=== PATIENT | male | born 1990 | race Caucasian/White ===

== ENCOUNTER 2018-04-04 21:08 | Observation (INO) ==
[2018-04-05] MEDS ORDERED: Naloxone 0.4 MG/ML INJ IVP PRN (00:53)
--- NOTE | 2018-04-05 00:56 | Internal Med History&Physical ---
Date of Encounter: 04/05/18 Time of Encounter: 08:00 Internal Medicine - H&P: HPI Chief complaint: right flank pain History of present illness: Mr. Hall is a 27 year old male with no significant past medical history who presented to outside hospital ER with right sided flank pain that started yesterday and is progressively worsening. The patient reported associated nausea and vomiting. The patient was evaluated by the ER at [place] and has laboratory data revealed no significant aches abnormalities except for microscopic hematuria which raised the suspicion of possible renal stone urology was consulted and the patient was transferred to [facility] for further evaluation and management. Past Med Surg Social Fam HX - Past Medical History Medical history: no medical history Psychiatric history: no psych history - Social History Smoking Status: Never smoker Smokeless Tobacco Status: No Alcohol use: none Drug use: none Internal Medicine - H&P: Meds 3 Allergy/AdvReac Type Severity Reaction Status Date / Time Penicillins Allergy See Verified 04/02/18 22:15 Comments All Systems PM: A 10-system review of systems was performed and is negative for pertinent findings except as documented above in the HPI. - Constitutional Constitutional: no chills, no fever(s), no night sweats - Cardiovascular Cardiovascular ROS IM: no chest pain, no diaphoresis, no dyspnea, no lightheadedness, no palpitations, no syncope - Respiratory Respiratory: no cough, no dyspnea, no wheezing, no excessive phlegm production - Gastrointestinal Gastrointestinal: no abdominal pain, no diarrhea, no hematemesis, no hematochezia, no melena, no nausea, no vomiting - Genitourinary Genitourinary ROS male: flank pain - Neurological Neurological ROS: no confusion, no convulsions, no focal weakness, no numbness, no tingling, no tremor(s) - Constitutional Vitals: Temp Pulse Resp BP Pulse Ox 98.9 F 68 14 165/95 99 04/04/18 22:45 04/04/18 22:45 04/04/18 22:45 04/04/18 22:45 04/04/18 22:45 General appearance: Present: A&O X 3 - Head Head exam: Present: atraumatic, normocephalic - Neck Neck exam general surgery: Present: supple, trachea midline. Absent: lymphadenopathy - Respiratory Respiratory exam: Present: CTAB. Absent: accessory muscle use, rales, rhonchi, wheezes - Cardiovascular Cardiovascular exam: Present: RRR, +S1, +S2. Absent: diastolic murmur, gallop, rubs, systolic murmur - GI/Abdominal GI/Abdominal exam: Present: normal bowel sounds, soft, no peritoneal signs. Absent: distended, tenderness - Neurological Exam Neurological exam: Present: CN II-XII intact, oriented X3, no focal deficits. Absent: pronater drift, facial droop, speech deficit Internal Med - H&P Results - Labs CBC & Chem 7: 04/05/18 05:41 04/05/18 05:41 - Assessment and plan (1) Right flank pain Current Visit: Yes Status: Acute Assessment and plan: Most likely secondary to nephrolithiasis, will start patient on IV fluid pain medication and antiemetic and we will consult urology in a.m. (2) Microscopic hematuria Current Visit: Yes Status: Acute Assessment and plan: Most likely secondary to nephrolithiasis we would repeat urinalysis (3) DVT prophylaxis Current Visit: Yes Status: Acute Assessment and plan: We will place SCDs - Time Spent With Patient Total time spent is greater than 50% in coordination of care (as documented) at patient's floor/unit and/or counseling patient:
[2018-04-05] MEDS: *HR* HYDROcodone/Acet 5/325 mg TABLET PO PRN ×3 (01:29→21:35)
[2018-04-05] MEDS: 0.9 % Sodium Chloride 1,000 ML IVC SCH ×2 (01:42→10:20)
[2018-04-05] MEDS ORDERED: Ondansetron 4 MG/2 ML VIAL IVP PRN (04:11)
[2018-04-05 06:30] LABS: Basophils % 0.3 %; Eosinophils % 0.2 %; Hematocrit 43.8 % (37.5-50.1); Hemoglobin 15.2 g/dL (12.9-16.9); Immature Granulocytes % 0.4 % (0-4); Lymphocytes # 1.7 K/mcL (0.6-4.6); Lymphocytes % 11.3 %; Mean Corpuscular HGB Conc 34.7 g/dL (31.6-35.5); Mean Corpuscular Hemoglobin 28.4 pg (28.0-33.3); Mean Corpuscular Volume 81.7 fL (83.0-100.0); Mean Platelet Volume 10.6 fL (9.4-12.4); Monocytes # 1.1 K/mcL (0.0-1.3); Monocytes % 7.4 %; Neutrophils # 11.8 K/mcL (1.6-8.9); Platelet Count 214 K/mcL (140-400); Red Blood Count 5.36 M/mcL (4.19-5.50); Red Cell Distribution Width 12.3 % (11.5-14.5); Segmented Neutrophils % 80.4 %
[2018-04-05 06:33] LABS: INR 1.1; Prothrombin Time 12.3 Seconds (9.4-12.1)
[2018-04-05 06:36] LABS: Activated Partial Thrombo Time 33.2 Seconds (26.0-36.0)
[2018-04-05] MEDS: Acetaminophen 325 MG TABLET PO PRN ×2 (06:45→17:55)
[2018-04-05 06:46] LABS: Alanine Aminotransferase 20 Units/L (7-52); Albumin 3.9 g/dL (3.5-5.7); Albumin/Globulin Ratio 1.8 (1.1-2.2); Alkaline Phosphatase 76 Units/L (34-104); Aspartate Amino Transferase 16 Units/L (13-39); BUN/Creatinine Ratio 10 (6-26); Bilirubin,Total 0.8 mg/dL (0.3-1.0); Blood Urea Nitrogen 12 mg/dL (6-20); Calcium 8.8 mg/dL (8.6-10.3); Carbon Dioxide 20 mEq/L (23-29); Chloride 110 mEq/L (98-107); Chol/HDL Ratio 6.7 (0-4.9); Cholesterol 201 mg/dL (< 200); Globulin 2.2 g/dL (2.4-3.5); Glucose 105 mg/dL (70-105); HDL Cholesterol 30 mg/dL (40-59); LDL Cholesterol,Calculated 152 mg/dL (0-99); Magnesium 1.8 mg/dL (1.6-2.6); Osmolality,Calculated 286 (280-300); Phosphorous 3.6 mg/dL (2.7-4.5); Sodium 138 mEq/L (136-145); Total Protein 6.1 g/dL (6.4-8.9); Triglycerides 96 mg/dL (< 150); eGFR For African Americans > 60 (> 60); eGFR For Non-African Americans > 60 (> 60)
--- NOTE | 2018-04-05 08:53 | Urology - Consult Note ---
Date of Encounter: 04/05/18 Time of Encounter: 08:51 - Assessment and Plan (1) Right ureteral stone Current Visit: Yes Status: Acute Assessment and plan: Patient has a ureteral stone on the right side. We will have the patient continue with fluids and by mouth intake today to see if he can pass the stone. If patient unable to pass a stone we will consider right ureteroscopic stone extraction tomorrow. Pain control as needed. (2) Hydronephrosis, right Current Visit: Yes Status: Acute Assessment and plan: This is secondary to an obstructing ureteral stone. Will resolve with either spontaneous passage of the stone or stone extraction. (3) Leukocytosis Current Visit: Yes Status: Acute Assessment and plan: Likely secondary to inflammation caused from hydronephrosis and right ureteral stone. Patient without any fevers. We will continue to observe closely. Qualifiers: Leukocytosis type: unspecified Qualified Code(s): D72.829 - Elevated white blood cell count, unspecified Urology CN:HPI Consult date: 04/05/18 Reason for consult Urology: Other (right ureteral stone) Requesting physician: Di Ramos History of present illness: Rajiv is a 27-year-old male with a history of recurrent kidney stones. Patient states that he presented to our emergency room 3 days ago the left before being seen secondary to long wait time. Patient then presented to outside hospital emergency department last night secondary to severe 10 out of 10 right-sided flank pain. Patient states pain radiated to her right groin. He denied any nausea or vomiting. No fevers. He was found to have a 6 mm mid distal right ureteral stone. Patient did have some proximal hydronephrosis. Patient states that he has passed multiple stones in the past. He has never had to have them removed. Past Med Surg Social Fam HX - Past Medical History Medical history: no medical history Psychiatric history: no psych history - Social History Smoking Status: Never smoker Smokeless Tobacco Status: No Alcohol use: none Drug use: none - Additional Family History Additional family history: Patient denies any significant family medical history. Medications and Allergies No Known Home Drugs 04/05/18 [History] 3 Allergy/AdvReac Type Severity Reaction Status Date / Time Penicillins Allergy See Verified 04/02/18 22:15 Comments Review of Systems - Constitutional no chills, no fever(s) - EENT Nose, mouth and throat: no dizziness, no sore throat - Cardiovascular no chest pain, no dyspnea, no edema - Respiratory no cough, no dyspnea - Gastrointestinal no abdominal pain, no nausea, no vomiting - Genitourinary flank pain, no difficulty urinating - Musculoskeletal back pain - Integumentary no erythema, no swelling - Neurological no confusion, no syncope, no weakness - Psychiatric no anxiety, no confusion - Hematologic/Lymphatic no easy bleeding, no lymphadenopathy - Allergic/Immunologic no throat swelling, no wheezing Exam Initial Vital Signs Temp Pulse Resp BP Pulse Ox 98.9 F 68 14 165/95 99 04/04/18 22:45 04/04/18 22:45 04/04/18 22:45 04/04/18 22:45 04/04/18 22:45 General/Neuological: alert and oriented x 3 Eyes: normal pupils, non-icteric Neck: no lymphadenopathy noted, supple to touch Cardiovascular: RRR, no murmurs Respiratory: normal respiratory effort, clear bilaterally ABD: soft, nontender, no masses palpated, good bowel sounds Back: no pain on percussion bilaterally, spine straight and nontender : normal phallus, normal scrotum, testicles and epididymides normal, urethral meatus normal. Skin: no rashes noted Musculoskeletal: normal gait, FROMx4 Urology Results - Labs 04/05/18 05:41 04/05/18 05:41 Abnormal lab results WBC 14.7 K/mcL (4.3-11.1) H 04/05/18 05:41 MCV 81.7 fL (83.0-100.0) L 04/05/18 05:41 Neutrophils # 11.8 K/mcL (1.6-8.9) H 04/05/18 05:41 PT 12.3 Seconds (9.4-12.1) H 04/05/18 05:41 Chloride 110 mEq/L (98-107) H 04/05/18 05:41 Carbon Dioxide 20 mEq/L (23-29) L 04/05/18 05:41 Serum Total Protein 6.1 g/dL (6.4-8.9) L 04/05/18 05:41 Globulin 2.2 g/dL (2.4-3.5) L 04/05/18 05:41 Cholesterol 201 mg/dL (< 200) H 04/05/18 05:41 LDL Cholesterol, Calc 152 mg/dL (0-99) H 04/05/18 05:41 HDL Cholesterol 30 mg/dL (40-59) L 04/05/18 05:41 Cholesterol/HDL Ratio 6.7 (0-4.9) H 04/05/18 05:41 Diabetes panel 04/05/18 Range/Units 05:41 Sodium 138 (136-145) mEq/L Potassium 4.0 (3.5-5.1) mEq/L Chloride 110 H (98-107) mEq/L Carbon Dioxide 20 L (23-29) mEq/L BUN 12 (6-20) mg/dL Creatinine 1.26 (0.70-1.30) mg/dL Glucose 105 (70-105) mg/dL Calcium 8.8 (8.6-10.3) mg/dL AST 16 (13-39) Units/L ALT 20 (7-52) Units/L Alkaline Phosphatase 76 (34-104) Units/L Albumin 3.9 (3.5-5.7) g/dL Triglycerides 96 (< 150) mg/dL HDL Cholesterol 30 L (40-59) mg/dL Calcium panel 04/05/18 Range/Units 05:41 Calcium 8.8 (8.6-10.3) mg/dL Phosphorus 3.6 (2.7-4.5) mg/dL Albumin 3.9 (3.5-5.7) g/dL Pituitary panel 04/05/18 Range/Units 05:41 Sodium 138 (136-145) mEq/L Potassium 4.0 (3.5-5.1) mEq/L Chloride 110 H (98-107) mEq/L Carbon Dioxide 20 L (23-29) mEq/L BUN 12 (6-20) mg/dL Creatinine 1.26 (0.70-1.30) mg/dL Glucose 105 (70-105) mg/dL Calcium 8.8 (8.6-10.3) mg/dL Adrenal panel 04/05/18 Range/Units 05:41 Sodium 138 (136-145) mEq/L Potassium 4.0 (3.5-5.1) mEq/L Chloride 110 H (98-107) mEq/L Carbon Dioxide 20 L (23-29) mEq/L BUN 12 (6-20) mg/dL Creatinine 1.26 (0.70-1.30) mg/dL Glucose 105 (70-105) mg/dL Calcium 8.8 (8.6-10.3) mg/dL Total Bilirubin 0.8 (0.3-1.0) mg/dL AST 16 (13-39) Units/L ALT 20 (7-52) Units/L Alkaline Phosphatase 76 (34-104) Units/L Albumin 3.9 (3.5-5.7) g/dL All other labs normal. - Imaging CT scan - abdomen: image reviewed CT scan - pelvis: image reviewed (Outside hospital CT scan reviewed which revealed a 6 mm mid distal right ureteral stone with some proximal hydronephrosis) Consult Discharge Plan - Plan Referrals: NONE,PCP [Primary Care Provider] -
[2018-04-05 10:41] LABS: Bilirubin,Urine Negative (Negative); Blood,Urine Negative (Negative); Clarity,Urine Clear (Clear); Color,Urine Yellow (Yellow); Glucose,Urine (UA) Normal (Normal); Ketones,Urine Trace mg/dL (Negative); Leukocyte Esterase,Urine Negative (Negative); Nitrite,Urine Negative (Negative); Protein,Urine Negative (Neg-Trace); Specific Gravity,Urine 1.024 (1.010-1.025); Urobilinogen,Urine Normal (Normal)
--- NOTE | 2018-04-05 12:21 | Event Note ---
Date of Encounter: 04/05/18 Time of Encounter: 12:10 Mr Hall was placed in observation earlier today for acute kidney stone with obstruction. Currently his pain is "tolerable". Heart reg. No wheeze Plan is for surgery tomorrow if does not pass.
[2018-04-05] MEDS ORDERED: Ketorolac 30 MG/ML VIAL IVP ONE (22:56)
--- NOTE | 2018-04-06 06:57 | Urology Progress Note ---
Date of Encounter: 04/06/18 Time of Encounter: 06:56 - Assessment and Plan (1) Right ureteral stone Current Visit: Yes Status: Acute Assessment and plan: to Or today for right ureteroscopic stone extraction. likely able to dc home later today (2) Hydronephrosis, right Current Visit: Yes Status: Acute (3) Leukocytosis Current Visit: Yes Status: Acute Qualifiers: Leukocytosis type: unspecified Qualified Code(s): D72.829 - Elevated white blood cell count, unspecified Progress Note Narrative: patient seen. feeling ok. has not passed stone. no pain at this time. no n/ v. no fevers. Objective Initial Vital Signs Temp Pulse Resp BP Pulse Ox 98.9 F 68 14 165/95 99 04/04/18 22:45 04/04/18 22:45 04/04/18 22:45 04/04/18 22:45 04/04/18 22:45 - General physical appearance Present: well developed, well nourished - Respiratory Present: normal expansion, normal respiratory effort - Abdomen Present: soft - Labs 04/05/18 05:41 04/05/18 05:41 Consult Discharge Plan - Plan Referrals: Presley Hammer MD [Partnered Physician] - NONE,PCP [Primary Care Provider] -
[2018-04-06] MEDS ORDERED: 0.9 % Sodium Chloride 1,000 ML IVC SCH ×2 (07:00→13:25)
--- NOTE | 2018-04-06 08:42 | Anesthesia Evaluation PreOp ---
Date of Encounter: 04/06/18 Time of Encounter: 08:39 - Past History Planned Operation: R-USE Cardiac History: Denies any Significant Hx Pulmonary History: Denies Any Significant HX INFO PRINT PRESS OPERATOR History: Denies Any Significant HX Other Medical History: Renal (Nephrolithiasis w/ microscopic hematuria) Anesthesia History: Past Anesthesia Alcohol Use: none Drug use: none Medications and Allergies No Known Home Drugs 04/05/18 [History] 3 Allergy/AdvReac Type Severity Reaction Status Date / Time Penicillins Allergy See Verified 04/02/18 22:15 Comments - Meds/Allergy Pre-op Review Medications Reviewed: Yes Allergies Reviewed: Yes Beta Blockers on Current Med List: No Anesthesia Results - Labs 04/05/18 05:41 04/05/18 05:41 Laboratory Results Anesthesia Exam Vital Signs Temp Pulse Resp BP Pulse Ox 04/06/18 07:14 98.5 F 67 20 122/78 97 04/06/18 03:19 98.4 F 64 15 115/73 96 04/05/18 19:12 98.4 F 69 15 121/73 97 04/05/18 14:38 98.4 F 69 14 138/87 97 04/05/18 10:45 98.7 F 55 14 124/78 98 Intake and Output 04/05/18 04/06/18 04/06/18 23:59 07:59 15:59 Intake Total 0 / 0 0 / 0 Output Total 0 / 0 1200 / 1200 Balance 0 / 0 -1200 / -1200 Intake: Oral 0 / 0 0 / 0 Output: Urine 0 / 0 1200 / 1200 Other: Weight 104.5 kg Blood Glucose* 85 Patient Weight 04/06/18 23:59 Weight 104.5 kg Height: 5'7" Weight: 230# BMI = 36 NPO (# of Hours): MNoc Pain Scale Used: Numeric (1 - 10) - HEENT Pupil (Motor): Pupils equal, EOMI Mallampati: II Teeth: Normal Oral Opening: Greater than 3 - INFO PRINT PRESS OPERATOR LOC: Oriented INFO PRINT PRESS OPERATOR Motor: Normal RUE, Normal LUE, Normal RLE, Normal LLE, Normal Face INFO PRINT PRESS OPERATOR Sensory: Normal: RUE, LUE, RLE, LLE, Face - Cardiac Rhythm: Regular Murmur: None - Pulmonary Breath Sounds: bilateral Clear Respiratory Effort: Symmetrical Anesthesia Assess/Plan ASA Score: 2 Modified [place] Scale for Level of Consciousness: Cooperative, oriented, and tranquil Anesthetic Plan: General Monitoring Plan: Standard Monitors Recovery Plan: PACU Anes Supervising Prov Stmt: Pt seen/evaluated, R&B discussed, questions answered and consent obtained. Wagner Rivera MD
[2018-04-06] MEDS ORDERED: *HR* Midazolam HCl 2 MG/2 ML VIAL ONE (11:13)
[2018-04-06] MEDS ORDERED: *HR* FentaNYL (PF) 100 MCG/2 ML VIAL ONE (11:13)
[2018-04-06] MEDS ORDERED: Lidocaine -MPF 2% 2 ML VIAL ONE (11:13)
[2018-04-06] MEDS ORDERED: Dexamethasone 4 MG/ML VIAL ONE (11:13)
[2018-04-06] MEDS ORDERED: Ondansetron 4 MG/2 ML VIAL ONE (11:13)
[2018-04-06] MEDS ORDERED: *HR* Propofol 200 MG/20 ML VIAL IVP ONE (11:13)
[2018-04-06] MEDS ORDERED: Ketorolac 30 MG/ML VIAL ONE (11:13)
[2018-04-06] MEDS ORDERED: Famotidine 20 MG/2 ML VIAL ONE (11:34)
[2018-04-06] MEDS ORDERED: Clindamycin 900 MG/50 ML 900 MG/50 ML IV.SOLN IVPB ONE (11:54)
[2018-04-06] MEDS ORDERED: *HR* Meperidine 25 MG/ML SYRINGE IVP PRN (12:19)
[2018-04-06] MEDS ORDERED: *HR* OxyCODONE Immed Rel 5 MG TABLET PO PRN (12:19)
[2018-04-06] MEDS ORDERED: *HR* Promethazine 25 MG/ML VIAL IVP PRN (12:19)
--- NOTE | 2018-04-06 12:28 | Operative Note ---
Date of procedure: 04/06/18 Pre-op diagnosis: right ureteral stone Post-op diagnosis: same Procedure: Cystoscopy and right ureteroscopic stone extraction with laser and basket. Right 4.8 x 28 cm ureteral stent placement Anesthesia: CASSIUS Surgeon: Presley Hammer Was there an assistant hvac mechanic present: Yes Cellar Supervisor: Chichi Masters Estimated blood loss (cc): 0 Specimen: Right ureteral stone Condition: stable Disposition: PACU Procedure in Detail: Patient was prepped and draped in normal sterile fashion. Timeout procedure performed. I then inserted the semirigid ureteroscope into the patient's bladder and advanced it up the right ureteral orifice. I used the sensor wire to guide in the way to the mid ureter were encountered the 6 cm stone. I then used the holmium laser to fragment the stone. All stone fragments were then removed using a nitinol basket. I then placed a 4.8 x 28 cm ureteral stent with good curl seen in the right kidney and in the bladder. A string was left for easy removal in 2-3 days. Patient was taken to PACU in stable condition. Okay for patient to be discharged today. He can follow-up with me in 3-4 weeks.
--- NOTE | 2018-04-06 13:07 | Anesthesia Evaluation Post Op ---
Date of Encounter: 04/06/18 Time of Encounter: 13:07 - Vital Signs Vital Signs: Vital Signs/O2 Sat, Most Current Temp Pulse Resp BP Pulse Ox 97.9 F 71 18 118/72 92 04/06/18 12:58 04/06/18 12:58 04/06/18 12:58 04/06/18 12:58 04/06/18 12:58 - Lungs Lungs: Clear Ascult./Percussion - Airway Airway: Non-obstructed - Cardiovascular Regular Rate - Mental Status Mental Status: Alert & Oriented, Answers Appropriately - Nausea Vomiting Nausea Vomiting: Not Present - Hydration Hydration: Tolerates oral liquids - Discharge PostOp Status: Transfer Patient to floor
[2018-04-06] MEDS ORDERED: Acetaminophen 325 MG TABLET PO PRN (13:25)
[2018-04-06] MEDS ORDERED: Naloxone 0.4 MG/ML INJ IVP PRN (13:25)
[2018-04-06] MEDS ORDERED: Ondansetron 4 MG/2 ML VIAL IVP PRN (13:25)
--- NOTE | 2018-04-06 14:07 | Discharge Summary ---
- NOTES TO OUTPATIENT PROVIDER Notes to Outpatient Provider: Pt admitted for acute kidney stone. Did not pass so was taken to OR for stent. To follow up with urology for further treatment. Date of Encounter: 04/07/18 Time of Encounter: 09:58 - Discharge Diagnosis (1) Hydronephrosis concurrent with and due to calculi of kidney and ureter Priority: Primary Status: Acute (2) Microscopic hematuria Priority: Secondary Status: Acute (3) Smokeless tobacco use Priority: Secondary Status: Chronic Assessment and Plan: Cessation counselling. Hospital course: Mr. Hall is a 27 year old male presented to ED with complaints of R flank pain. He was found to have stone with hydronephrosis and transferred to [place]. Mr Hall was placed in observation on med surg. He was seen by urology service and continued on pain control and fluids. He did not pass stone so on he was taken to OR and stent placed. He was somnolent post surgery so discharge held till today. Today he is more comfortable. He is afebrile and ready for discharge home. Discharge discussed with: patient - Time Spent with Patient Total time spent providing and/or coordinating discharge services: 28min - Discharge Medications Prescriptions: HYDROcodone/Acet 5/325 mg [Ford 5-325 mg] 1 tab PO Q6HR PRN 2 Days #10 tablet PRN Reason: Moderate Pain Home Medications: Acetaminophen [Tylenol] 650 mg PO Q6HR PRN tablet 04/07/18 [Rx] HYDROcodone/Acet 5/325 mg [Ford 5-325 mg] 1 tab PO Q6HR PRN 2 Days #10 tablet 04/07/18 [Rx] Allergies/Adverse Reactions: 3 Allergy/AdvReac Type Severity Reaction Status Date / Time Penicillins Allergy See Verified 04/02/18 22:15 Comments Date of admission: 04/04/18 22:27 Primary care physician: PCP NONE Consults: 04/05/18 07:03 Consult to Urology [CONS] Routine Consulting Provider: Urology [facility] Reason for Consult: renal stone Time Notified: 07:04 Call Completed: Yes Discharging clinician: Rubio Cantor Anticipated date of discharge: 04/07/18 - Constitutional Vitals: Temp Pulse Resp BP Pulse Ox 97.9 F 68 18 112/66 92 04/06/18 13:08 04/06/18 13:08 04/06/18 13:08 04/06/18 13:08 04/06/18 13:08 General appearance: Present: A&O X 3, pleasant, answers questions appropriately - Head Head exam: Present: normocephalic - Eye Eye exam: Present: EOMI, conjuntiva pink - ENT ENT exam: Present: mucous membranes moist - Respiratory Respiratory exam: Present: CTAB. Absent: rales, rhonchi, wheezes - Cardiovascular Cardiovascular exam: Present: RRR. Absent: tachycardia - GI/Abdominal GI/Abdominal exam: Present: soft. Absent: tenderness - Extremities Exam Extremities exam: Present: warm. Absent: tenderness - Neurological Exam Neurological exam: Present: alert, oriented X3, no focal deficits - Skin Skin exam: Present: dry, warm - Patient Status Disposition: Home, Self-Care Condition: Good Functional capacity at discharge: independent ambulation Overall status at discharge: patient is progressing back to baseline - Discharge Instructions Follow Up With: Presley Hammer MD [Partnered Physician] - NONE,PCP [Primary Care Provider] - Forms: Inpatient Work/School Release - Diet and Activity Activity: increase activity as tolerated Diet: advance to your usual diet
--- NOTE | 2018-04-06 18:26 | Internal Med Progress Note ---
Date of Encounter: 04/06/18 Time of Encounter: 16:30 - Assessment and plan (1) Right ureteral stone Current Visit: Yes Status: Acute Assessment and plan: S/P stent placement today. Will monitor overnight due to persistent somnolence. (2) Hydronephrosis, right Current Visit: Yes Status: Acute Assessment and plan: Stent placed today. (3) Microscopic hematuria Current Visit: Yes Status: Acute Assessment and plan: Most likely secondary to nephrolithiasis (4) DVT prophylaxis Current Visit: Yes Status: Acute - Time Spent With Patient Total time spent is greater than 50% in coordination of care (as documented) at patient's floor/unit and/or counseling patient: - Subjective Interval history: Mr Hall is currently in observation for kidney stone. He remains moderate to high risk. Mr Hall just returned from surgery. He is very somnolent. No fever or chills. Urinating OK. - Constitutional Vitals: Temp Pulse Resp BP Pulse Ox 97.8 F 70 18 107/68 95 04/06/18 16:00 04/06/18 16:00 04/06/18 16:00 04/06/18 16:00 04/06/18 16:00 General appearance: Present: A&O X 3 - Head Head exam: Present: normocephalic - Eye Eye exam: Present: conjuntiva pink - ENT ENT exam: Present: mucous membranes dry - Respiratory Respiratory exam: Present: CTAB. Absent: rhonchi, wheezes - Cardiovascular Cardiovascular exam: Present: RRR. Absent: tachycardia - GI/Abdominal GI/Abdominal exam: Present: soft - Extremities Exam Extremities exam: Present: warm. Absent: tenderness - Neurological Exam Neurological exam: Present: alert, no focal deficits - Skin Skin exam: Present: dry, warm Internal Medicine: Result - Labs CBC & Chem 7: 04/05/18 05:41 04/05/18 05:41 - ABG Interpretation ABG results: PT/INR, D-dimer PT 12.3 Seconds (9.4-12.1) H 04/05/18 05:41 - Impressions Impressions Fluoroscopy 04/06/18 12:03 IMPRESSION: Intraprocedural fluoroscopic spot images as above. See separate procedure report for more information. D/ / Josef Reid MD / Josef Reid MD Interpreting Provider: Josef Reid MD X-Ray 04/06/18 12:03 IMPRESSION: Intraprocedural fluoroscopic spot images as above. See separate procedure report for more information. D/ / Josef Reid MD / Josef Reid MD Interpreting Provider: Josef Reid MD - VTE Documentation of Mechanical Device: Intermittent pneumatic compression device Consult Discharge Plan - Plan Referrals: Presley Hammer MD [Partnered Physician] - NONE,PCP [Primary Care Provider] -
[2018-04-06] MEDS: *HR* HYDROcodone/Acet 5/325 mg TABLET PO PRN (19:28)
[2018-04-07] MEDS: *HR* HYDROcodone/Acet 5/325 mg TABLET PO PRN (04:52)
[2018-04-07 07:27] VITALS: BP 123/73
== END 2018-04-07 12:25 | disposition home or self-care (01) ==
LOC: 3ANU → SUATTDRO 22:27
PROVIDERS: ADMIT Family Medicine; ATTEND Internal Medicine